=== PATIENT | male | born 1980 | race Hispanic/Latino ===

== ENCOUNTER 2021-05-23 09:40 | Emergency (ER) | payer OTHER ==
[~2021-05-23] VITALS: Ht 172.7 cm; Wt 83.9 kg
[2021-05-23] MEDS ORDERED: PROVENTIL HFA6.7 GM INH (10:32)
[2021-05-23] MEDS ORDERED: MUCINEX DM ER1 EACH PO (10:32)
[2021-05-23 11:09] VITALS: BP 112/78
== END 2021-05-23 11:11 | disposition home or self-care (01) ==
LOC: ER 09:52
DX: R05 Cough (principal); U07.1 COVID-19
CPT/HCPCS: 99283; U0002